=== PATIENT | male | born 1950 | race Caucasian/White ===

== ENCOUNTER → 2016-03-15 12:58 | Outpatient (CLI) | payer MEDICARE, BC ==
--- NOTE | 2016-03-15 14:14 | NUR ---
Nutrition education for DMT2: Pt reports eating only two meals a day. Pt is also a vegetarian and eats a lot of rice, pasta, beans - high CHO foods. Pt is very erratic with his eating habits - he never eats at the same time from day to day. Pts fasting glucose and A1c have been climbing over the last year. A1c: 6.6% Fasting glucose: 130 mg/dl Ht: 6' Wt: 185# IBW: 178# +/-10% BMI: 25.1 Reviewed CHO foods and the affect CHO have on glucose. Stressed the importance of eating meals about the same time every day. Advised pt to eat at least 3 meals a day with at least 1 HS snack. Reviewed sample menus with emphasis on CHO. Discussed good plant sources of protein to include in daily meals to meet protein requirements. Pt seemed a little resistant to the information provided. Pt is making excuses for not being able to eat meals at regular times due to being retired and very busy during the day. RDN continued to stress that pts glucose numbers were only going to get worse if he chose not to get his eating habits under better control. Pt has agreed to work on eating meals at more consistent times. Provided pt with printed diet information and RDN name and phone number. RDN will be available if needed. Thank you for the consult.
== END | disposition home or self-care (01) ==
LOC: D.FANS 12:58
DX: E11.9 Type 2 diabetes mellitus without complications (principal)